=== PATIENT | female | born 1995 | race Caucasian/White ===

== ENCOUNTER → 2017-03-04 | Outpatient (CLI) | payer MEDICAID ==
[~2017-03-04] MED LIST: ADDERALL XR30 MG PO; AMOXICILLI250 MG/52 PO; BACTROBAN2% TP; CITALOPRAM HYDR20 MG PO; CYCLOBENZAPRINE10 M1 OR; DOXEPIN PO; ETODOLAC200 MG PO; NAPROXEN500 M1 PO; OXYCODONE-ACETA1 TAB PO; ROBAXIN-750750 MG PO; TRAZADONE HYDR100 MG PO; TRI PREVIFEM PO; ZITHROMAX Z PA250 MG PO
--- NOTE | 2017-03-05 09:36 | RADIOLOGY REPORT PS360 ---
US PELVIS-TRANSVAGINAL ONLY COMPARISON: CT scan abdomen pelvis 10/19/2014 HISTORY: Midline back pain for 2 weeks TECHNIQUE: Transvaginal imaging FINDINGS: The uterus is normal in size and in the midline. The endometrial echo appears normal. There is a more well-defined echo within the endometrium consistent with an IUD. Both ovaries are imaged both appearing normal in size and appearing normal. There is no cul-de-sac fluid. IMPRESSION: IUD within the endometrium, unremarkable ultrasound of the pelvis
== END ==
LOC: RAD 14:47
DX: N83.209 Unspecified ovarian cyst, unspecified side (principal); R10.2 Pelvic and perineal pain